=== PATIENT | male | born 1985 | race Two or more races ===

== ENCOUNTER 2016-06-27 12:30 | Inpatient (IN) | payer OTHER ==
[2016-06-27 14:12] VITALS: BMI 25.2
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
[2016-06-27] MEDS ORDERED: guaiFENesin/D-METHORPHAN HB 10 ML UNIT-DOSE CUPS PO PRN (16:36)
[2016-06-27] MEDS ORDERED: NICOTINE POLACRILEX 4 MG GUM BC PRN (16:36)
[2016-06-27] MEDS ORDERED: MENTHOL/PHENOL 1 EACH UD MM PRN (16:36)
[2016-06-27] MEDS ORDERED: chlordiazePOXIDE HCL 25 MG CAPSULE PO PRN (16:36)
[2016-06-27] MEDS ORDERED: LOPERAMIDE HCL 2 MG CAPSULE PO PRN (16:36)
[2016-06-27] MEDS ORDERED: IBUPROFEN 400 MG TABLET (FP) PO PRN (16:36)
[2016-06-27] MEDS ORDERED: P-EPHED 60MG/TRIPROLIDI 2.5MG TABLET PO PRN (16:36)
[2016-06-27] MEDS ORDERED: MAGNESIUM HYDROX 2400MG/30ML ORAL SUSPENSION 30 ML CUP PO PRN (16:36)
[2016-06-27] MEDS ORDERED: MAGNESIUM CITRATE 300 ML BOTTLE PO PRN (16:36)
[2016-06-27] MEDS ORDERED: hydrOXYzine PAMOATE 25 MG CAPSULE (FP) PO PRN (16:36)
[2016-06-27] MEDS ORDERED: diphenhydrAMINE HCL 50 MG CAPSULE PO PRN (16:36)
[2016-06-27] MEDS: chlordiazePOXIDE HCL 25 MG CAPSULE PO SCH ×2 (18:45→22:47)
[2016-06-27] MEDS: NICOTINE 21 MG/24 HOURS TOPICAL PATCH TD SCH (18:51)
[2016-06-27] MEDS: MAG HYDROX/AL HYDROX/SIMETH 30 ML UNIT-DOSE CUP PO PRN (20:27)
[2016-06-27] MEDS: ACETAMINOPHEN 325 MG TABLET (FP) PO PRN (21:29)
[2016-06-27] MEDS ORDERED: PANTOPRAZOLE 40 MG TABLET (FP) PO SCH (22:45)
[2016-06-27] MEDS: THIAMINE HCL 100 MG TABLET (FP) PO SCH (22:49)
[2016-06-27] MEDS: BACITRACIN 0.9 GM PACKET TP SCH (22:49)
[2016-06-27] MEDS: SUCRALFATE 1 GM/10 ML UNIT DOSE CUPS PO SCH (23:08)
[2016-06-27] MEDS: RANITIDINE HCL 150 MG TABLET (FP) PO SCH (23:10)
[2016-06-27] MEDS: PANTOPRAZOLE 40 MG TABLET (FP) PO SCH (23:11)
--- NOTE | 2016-06-27 23:12 | PN ---
[id number] from standing to lying on bed, pivot self to center of bed skin warm dry, lungs clear, S1S2 RRR, abdomen round symmetical, bowel sounds x 4 , soft, none tender encourage compliance with carafate protonix and zantac pharmacist informed will deliver medication to unit as soon as possible recommend inform provider if condition worsening continue monitoring closely
[2016-06-27 23:21] LABS: URINE APPEARANCE CLEAR; URINE BILIRUBIN NEGATIVE (NEGATIVE); URINE BLOOD NEGATIVE (NEGATIVE); URINE COLOR LTYELLOW; URINE GLUCOSE (UA) NEGATIVE (NEGATIVE); URINE KETONE TRACE (NEGATIVE); URINE LEUK ESTERASE NEGATIVE (NEGATIVE); URINE NITRITE NEGATIVE (NEGATIVE); URINE PROTEIN NEGATIVE (NEGATIVE); URINE UROBILINOGEN NEGATIVE E.U./dl (0.2-1.0)
[2016-06-28] MEDS: ACETAMINOPHEN 325 MG TABLET (FP) PO PRN (02:23)
[2016-06-28] MEDS: MAG HYDROX/AL HYDROX/SIMETH 30 ML UNIT-DOSE CUP PO PRN (04:46)
[2016-06-28] MEDS: chlordiazePOXIDE HCL 25 MG CAPSULE PO SCH ×4 (05:39→22:38)
[2016-06-28] MEDS ORDERED: RANITIDINE HCL 150 MG TABLET (FP) PO SCH (10:00)
[2016-06-28 10:01] LABS: MCH 26.7 pg (25.7-33.7); MCHC 31.8 g/dl (32.0-35.9); MEAN PLT VOLUME 8.3 fl (7.5-11.1); PLATELET COUNT 343 K/MM3 (134-434); RDW 15.8 % (11.9-15.9)
[2016-06-28] MEDS: RANITIDINE HCL 150 MG TABLET (FP) PO SCH ×2 (10:40→22:38)
[2016-06-28] MEDS: PRENATAL VITAMINS W/ FOLIC ACID TABLET (FP) PO SCH (10:40)
[2016-06-28] MEDS: PANTOPRAZOLE 40 MG TABLET (FP) PO SCH ×2 (10:40→22:38)
[2016-06-28] MEDS: SUCRALFATE 1 GM/10 ML UNIT DOSE CUPS PO SCH ×4 (10:40→22:38)
[2016-06-28 10:54] LABS: ALBUMIN 3.8 g/dl (3.4-5.0); ALK PHOS 92 U/L (45-117); ANION GAP 14 (8-16); BILIRUBIN,TOTAL 0.3 mg/dL (0.2-1.0); CALCIUM 8.7 mg/dL (8.5-10.1); CO2 22 mmol/L (21-32); CREATININE 0.5 mg/dL (0.7-1.3); GLUCOSE,RANDOM 89 mg/dL (74-106); SGOT/AST 34 U/L (15-37); SGPT/ALT 28 U/L (12-78); TOT PROT 7.6 g/dl (6.4-8.2)
[2016-06-28] MEDS: NICOTINE 21 MG/24 HOURS TOPICAL PATCH TD SCH (11:05)
[2016-06-28] MEDS: BACITRACIN 0.9 GM PACKET TP SCH ×2 (11:05→22:38)
--- NOTE | 2016-06-28 12:00 | CONSULT ---
[facility] Psychiatric Consult - Data Date of interview: 06/28/16 Admission source: [facility] Identifying data: Readmission to [facility] for this 30 y/o male seeking detox treatment for alcohol dependence.Patient is without children,domiciled, unemployed and supported on food stamps. Substance Abuse History: - Smoking Cessation. Smoking history: Current every day smoker. Have you smoked in the past 12 months: Yes. Aproximately how many cigarettes per day: 20. Cigars Per Day: 0. Hx Chewing Tobacco Use: No. Initiated information on smoking cessation: Yes. 'Breaking Loose' booklet given : 06/27/16. - Substance & Tx. History. Hx Alcohol Use: Yes (BEER/VODKA( SOMETIMES)). Hx Substance Use: No (DENIES). Substance Use Type: Alcohol. Hx Substance Use Treatment: Yes ([facility]). - Substances Abused. Alcohol. Route: Oral. Frequency: Daily. Amount used: 10-20 BEERS. Age of first use: 19. Date of Last Use: 06/27/16. Confirmed by patient. Medical History: Patient endorses good general health. Psychiatric History: Initially diagnosed with Schizophrenia,recently revised to Bipolar Disorder.History of five psychiatric hospitalizations.Maintained on seroquel 300 mg/hs + trazodone 150 mg/hs.Patient states that he is followed by a private psychiatrist.History of chronic non-adherence to [facility] care.Mr Joyce denies history of suicide attempts. Physical/Sexual Abuse/Trauma History: Patient denies. Additional Comment: Urine Drug Screen Results: BZO-Benzodiazepines.Noted. Mental Status Exam - Mental Status Exam Alert and Oriented to: Time, Place, Person Cognitive Function: Good Patient Appearance: Unkempt, Disheveled Mood: Withdrawn, Anxious Affect: Mood Congruent Patient Behavior: Fatigued, Appropriate, Cooperative Speech Pattern: Clear Voice Loudness: Normal Thought Process: Goal Oriented Thought Disorder: Not Present Hallucinations: Denies Suicidal Ideation: Denies Homicidal Ideation: Denies Insight/Judgement: Poor Sleep: Poorly, Difficulty falling asleep Appetite: Good Muscle strength/Tone: Normal Gait/Station: Normal Psychiatric Findings - Problem List ([place] 1, 2,3) (1) Alcohol dependence with uncomplicated withdrawal Current Visit: Yes Status: Acute (2) Nicotine dependence Current Visit: Yes Status: Acute Qualifiers: Nicotine product type: cigarettes Substance use status: uncomplicated Qualified Code(s): F17.210 - Nicotine dependence, cigarettes, uncomplicated (3) Substance induced mood disorder Current Visit: Yes Status: Acute (4) Schizophrenia Current Visit: Yes Status: Chronic Comment: History. (5) Insomnia Current Visit: Yes Status: Chronic - Initial Treatment Plan Initial Treatment Plan: Psychoeducation.Detoxification.Medications : seroquel 300 mg po hs + trazodone 100 mg po hs.Side effects/benefits discussed with patient.He agrees with this careplan.Observation.Medications verified through review of pharmacy claims.
--- NOTE | 2016-06-28 15:04 | PN ---
S CIWA - CIWA Score Nausea/Vomitin-No Nausea/No Vomiting Muscle Tremors: 4-Moderate,w/Arms Extend Anxiety: 4-Mod. Anxious/Guarded Agitation: 4-Moderately Restless Paroxysmal Sweats: 4-Forehead w/Sweat Beads Orientation: 0-Oriented Tacttile Disturbances: 0-None Auditory Disturbances: 0-None Visual Disturbances: 0-None Headache: 0-None Present CIWA-Ar Total Score: 16 BHS Progress Note (SOAP) Subjective: Anxiety,tremors,sweating,interrupted sleep,restless. Objective: 06/28/16 15:05 Vital Signs - 8 hr 06/28/16 06/28/16 10:48 13:32 Temperature 98.6 F 98.4 F Pulse Rate 104 H 85 Respiratory 20 18 Rate Blood Pressure 114/74 124/73 Laboratory Tests 06/27/16 06/28/16 06/28/16 22:00 06:00 06:00 WBC 12.0 H D RBC 3.93 L Hgb 10.5 L D Hct 33.0 L D MCV 84.0 MCHC 31.8 L RDW 15.8 Plt Count 343 D MPV 8.3 D Sodium 138 Potassium 3.6 Chloride 102 Carbon Dioxide 22 Anion Gap 14 BUN 4 L D Creatinine 0.5 L D Creat Clearance w eGFR > 60 Random Glucose 89 Calcium 8.7 Total Bilirubin 0.3 D AST 34 ALT 28 D Alkaline Phosphatase 92 D Total Protein 7.6 Albumin 3.8 Urine Color Ltyellow Urine Appearance Clear Urine pH 5.0 D Ur Specific [place] 1.010 Urine Protein Negative Urine Glucose (UA) Negative Urine Ketones Trace H Urine Blood Negative Urine Nitrite Negative Urine Bilirubin Negative Urine Urobilinogen Negative Ur Leukocyte Esterase Negative RPR Titer 06/28/16 06:00 WBC RBC Hgb Hct MCV MCHC RDW Plt Count MPV Sodium Potassium Chloride Carbon Dioxide Anion Gap BUN Creatinine Creat Clearance w eGFR Random Glucose Calcium Total Bilirubin AST ALT Alkaline Phosphatase Total Protein Albumin Urine Color Urine Appearance Urine pH Ur Specific [place] Urine Protein Urine Glucose (UA) Urine Ketones Urine Blood Urine Nitrite Urine Bilirubin Urine Urobilinogen Ur Leukocyte Esterase RPR Titer Nonreactive labs noted Assessment: 06/28/16 15:05 Withdrawal sx. Plan: Continue detox
--- NOTE | 2016-06-28 16:55 | EKG ---
Test Reason : Blood Pressure : / mmHG Vent. Rate : 102 BPM Atrial Rate : 102 BPM P-R Int : 118 ms QRS Dur : 078 ms QT Int : 368 ms P-R-T Axes : 067 069 066 degrees QTc Int : 479 ms SINUS TACHYCARDIA OTHERWISE NORMAL ECG NO PREVIOUS ECGS AVAILABLE Confirmed by BRIAN RAHMAN MD ([id number]) on 06/28/2016 4:55:10 PM Referred By: Confirmed By:BRIAN RAHMAN MD
[2016-06-28] MEDS: QUEtiapine FUMARATE 300 MG TABLET PO SCH (22:38)
[2016-06-28] MEDS: traZODone HCL 100 MG TABLET (FP) PO SCH (22:38)
[2016-06-28] MEDS: THIAMINE HCL 100 MG TABLET (FP) PO SCH (22:38)
[2016-06-29] MEDS: chlordiazePOXIDE HCL 25 MG CAPSULE PO SCH ×2 (06:36→11:42)
--- NOTE | 2016-06-29 06:36 | PN ---
[facility] Progress Note Note: RAPID RESPONSE CALLED FOR UNRESPONSIVE PT. UPON ARRIVAL CLIENT NOTED BEING SUPPORTED BY STAFF ON A CHAIR WAKING UP FROM A SYNCOPE EPISODE AROUSABLE, PALE, C/O OF SEVERE ABD PAIN. INCONTINENT EPISODE OF URINE Laboratory Tests 06/27/16 06/28/16 06/28/16 22:00 06:00 06:00 WBC 12.0 H D RBC 3.93 L Hgb 10.5 L D Hct 33.0 L D MCV 84.0 MCHC 31.8 L RDW 15.8 Plt Count 343 D MPV 8.3 D Sodium 138 Potassium 3.6 Chloride 102 Carbon Dioxide 22 Anion Gap 14 BUN 4 L D Creatinine 0.5 L D Creat Clearance w eGFR > 60 POC Glucometer Random Glucose 89 Calcium 8.7 Total Bilirubin 0.3 D AST 34 ALT 28 D Alkaline Phosphatase 92 D Total Protein 7.6 Albumin 3.8 Urine Color Ltyellow Urine Appearance Clear Urine pH 5.0 D Ur Specific [place] 1.010 Urine Protein Negative Urine Glucose (UA) Negative Urine Ketones Trace H Urine Blood Negative Urine Nitrite Negative Urine Bilirubin Negative Urine Urobilinogen Negative Ur Leukocyte Esterase Negative RPR Titer 06/28/16 06/29/16 06:00 06:11 WBC RBC Hgb Hct MCV MCHC RDW Plt Count MPV Sodium Potassium Chloride Carbon Dioxide Anion Gap BUN Creatinine Creat Clearance w eGFR POC Glucometer 123 Random Glucose Calcium Total Bilirubin AST ALT Alkaline Phosphatase Total Protein Albumin Urine Color Urine Appearance Urine pH Ur Specific [place] Urine Protein Urine Glucose (UA) Urine Ketones Urine Blood Urine Nitrite Urine Bilirubin Urine Urobilinogen Ur Leukocyte Esterase RPR Titer Nonreactive VS T 97, B/P 68/43 REPEAT 83/54 P- 104, R 20 O2 SAT 95 RA BGM 122 A- SYNCOPE, ETOH WITHDRAWAL, ABD PAIN P- 30 Y.O. MALE WITH PMHX OF ETOH RELATED WITHDRAWAL SEIZURES, ADMITTED FOR ALCOHOLISM DAY 05/15 WITH C/O SEVERE ABD PAIN NOTED W/SYNCOPE, HYPOTENSIVE EPISODE THIS MORNING. ON LIBRIUM TAPER LDM 25MG ON 06/28/16 10:30 PM TRANSFER TO [facility] FOR EVAL REPORT GIVEN TO FABIAN HANDLEY CALLED
[2016-06-29] MEDS: BACITRACIN 0.9 GM PACKET TP SCH ×2 (11:41→22:13)
[2016-06-29] MEDS: SUCRALFATE 1 GM/10 ML UNIT DOSE CUPS PO SCH ×4 (11:42→22:13)
[2016-06-29] MEDS: NICOTINE 21 MG/24 HOURS TOPICAL PATCH TD SCH (11:48)
[2016-06-29] MEDS: PRENATAL VITAMINS W/ FOLIC ACID TABLET (FP) PO SCH (11:48)
[2016-06-29] MEDS: RANITIDINE HCL 150 MG TABLET (FP) PO SCH ×2 (11:49→22:13)
[2016-06-29] MEDS: PANTOPRAZOLE 40 MG TABLET (FP) PO SCH ×2 (11:49→22:14)
--- NOTE | 2016-06-29 14:07 | PN ---
S CIWA - CIWA Score Nausea/Vomitin Muscle Tremors: 2 Anxiety: 3 Agitation: 2 Paroxysmal Sweats: 1-Minimal Palms Moist Orientation: 0-Oriented Tacttile Disturbances: 1-Very Mild Itch/Numbness Auditory Disturbances: 1-Very Mild Visual Disturbances: 1-Very Mild Sensitivity Headache: 2-Mild CIWA-Ar Total Score: 16 BHS Progress Note (SOAP) Subjective: alert,irritable,anxious,interrupted sleep,medically clear from [facility] er to return to detox Objective: 06/29/16 14:08 Vital Signs Temperature 97.4 F L 06/29/16 06:39 Pulse Rate 104 H 06/29/16 06:39 Respiratory Rate 16 06/29/16 06:39 Blood Pressure 89/62 06/29/16 06:39 O2 Sat by Pulse Oximetry (%) Assessment: 06/29/16 14:09 withdrawal symptom Plan: continue detox.zitromax 250 mgs po daily for 4 days stated in am
[2016-06-29] MEDS: chlordiazePOXIDE 5 MG CAPSULE PO SCH ×2 (17:08→22:14)
[2016-06-29] MEDS: traZODone HCL 100 MG TABLET (FP) PO SCH (22:13)
[2016-06-29] MEDS: THIAMINE HCL 100 MG TABLET (FP) PO SCH (22:14)
[2016-06-29] MEDS: QUEtiapine FUMARATE 300 MG TABLET PO SCH (22:14)
[2016-06-30] MEDS: chlordiazePOXIDE 5 MG CAPSULE PO SCH ×2 (05:31→10:15)
[2016-06-30] MEDS: AZITHROMYCIN 250 MG TABLET (FP) PO SCH (10:15)
[2016-06-30] MEDS: BACITRACIN 0.9 GM PACKET TP SCH ×2 (10:16→22:09)
[2016-06-30] MEDS: NICOTINE 21 MG/24 HOURS TOPICAL PATCH TD SCH (10:16)
[2016-06-30] MEDS: SUCRALFATE 1 GM/10 ML UNIT DOSE CUPS PO SCH ×4 (10:16→22:09)
[2016-06-30] MEDS: RANITIDINE HCL 150 MG TABLET (FP) PO SCH ×2 (10:16→22:10)
[2016-06-30] MEDS: PRENATAL VITAMINS W/ FOLIC ACID TABLET (FP) PO SCH (10:16)
[2016-06-30] MEDS: PANTOPRAZOLE 40 MG TABLET (FP) PO SCH ×2 (10:16→22:10)
--- NOTE | 2016-06-30 11:08 | PN ---
[facility] Progress Note (SOAP) Subjective: Sweating,interrupted sleep,restless. Objective: 06/30/16 11:07 Vital Signs - 8 hr 06/30/16 06/30/16 06/30/16 03: 06:26 09:39 Temperature 97.4 F L 96.5 F L Pulse Rate 89 85 Respiratory 16 16 19 Rate Blood Pressure 106/70 118/77 Laboratory Last Values WBC 12.0 K/mm3 (4.0-10.0) H D 06/28/16 06:00 RBC 3.93 M/mm3 (4.00-5.60) L 06/28/16 06:00 Hgb 10.5 GM/dL (11.7-16.9) L D 06/28/16 06:00 Hct 33.0 % (35.4-49) L D 06/28/16 06:00 MCV 84.0 fl (80-96) 06/28/16 06:00 MCHC 31.8 g/dl (32.0-35.9) L 06/28/16 06:00 RDW 15.8 % (11.9-15.9) 06/28/16 06:00 Plt Count 343 K/MM3 (134-434) D 06/28/16 06:00 MPV 8.3 fl (7.5-11.1) D 06/28/16 06:00 Sodium 138 mmol/L (136-145) 06/28/16 06:00 Potassium 3.6 mmol/L (3.5-5.1) 06/28/16 06:00 Chloride 102 mmol/L (98-107) 06/28/16 06:00 Carbon Dioxide 22 mmol/L (21-32) 06/28/16 06:00 Anion Gap 14 (8-16) 06/28/16 06:00 BUN 4 mg/dL (7-18) L D 06/28/16 06:00 Creatinine 0.5 mg/dL (0.7-1.3) L D 06/28/16 06:00 Creat Clearance w eGFR > 60 (>60) 06/28/16 06:00 POC Glucometer 123 UNITS (()) 06/29/16 06:11 Random Glucose 89 mg/dL (74-106) 06/28/16 06:00 Calcium 8.7 mg/dL (8.5-10.1) 06/28/16 06:00 Total Bilirubin 0.3 mg/dL (0.2-1.0) D 06/28/16 06:00 AST 34 U/L (15-37) 06/28/16 06:00 ALT 28 U/L (12-78) D 06/28/16 06:00 Alkaline Phosphatase 92 U/L (45-117) D 06/28/16 06:00 Total Protein 7.6 g/dl (6.4-8.2) 06/28/16 06:00 Albumin 3.8 g/dl (3.4-5.0) 06/28/16 06:00 Urine Color Ltyellow 06/27/16 22:00 Urine Appearance Clear 06/27/16 22:00 Urine pH 5.0 (5.0-8.0) D 06/27/16 22:00 Ur Specific [place] 1.010 (1.001-1.035) 06/27/16 22:00 Urine Protein Negative (NEGATIVE) 06/27/16 22:00 Urine Glucose (UA) Negative (NEGATIVE) 06/27/16 22:00 Urine Ketones Trace (NEGATIVE) H 06/27/16 22:00 Urine Blood Negative (NEGATIVE) 06/27/16 22:00 Urine Nitrite Negative (NEGATIVE) 06/27/16 22:00 Urine Bilirubin Negative (NEGATIVE) 06/27/16 22:00 Urine Urobilinogen Negative E.U./dl (0.2-1.0) 06/27/16 22:00 Ur Leukocyte Esterase Negative (NEGATIVE) 06/27/16 22:00 RPR Titer Nonreactive (NONREACTIVE) 06/28/16 06:00 labs noted Assessment: 06/30/16 11:07 Withdrawal sx. Plan: Continue detox
[2016-06-30] MEDS: chlordiazePOXIDE HCL 10 MG CAPSULE PO SCH ×2 (17:21→22:09)
[2016-06-30] MEDS: THIAMINE HCL 100 MG TABLET (FP) PO SCH (22:09)
[2016-06-30] MEDS: traZODone HCL 100 MG TABLET (FP) PO SCH (22:09)
[2016-06-30] MEDS: QUEtiapine FUMARATE 300 MG TABLET PO SCH (22:10)
[2016-07-01] MEDS: chlordiazePOXIDE HCL 10 MG CAPSULE PO SCH ×2 (05:11→10:07)
[2016-07-01] MEDS: SUCRALFATE 1 GM/10 ML UNIT DOSE CUPS PO SCH (10:07)
[2016-07-01] MEDS: NICOTINE 21 MG/24 HOURS TOPICAL PATCH TD SCH (10:07)
[2016-07-01] MEDS: RANITIDINE HCL 150 MG TABLET (FP) PO SCH (10:07)
[2016-07-01] MEDS: PRENATAL VITAMINS W/ FOLIC ACID TABLET (FP) PO SCH (10:07)
[2016-07-01] MEDS: BACITRACIN 0.9 GM PACKET TP SCH (10:07)
[2016-07-01] MEDS: PANTOPRAZOLE 40 MG TABLET (FP) PO SCH (10:07)
[2016-07-01] MEDS: AZITHROMYCIN 250 MG TABLET (FP) PO SCH (10:07)
[2016-07-01 10:41] VITALS: BP 119/84; PULSE 93; TEMP 96.9
--- NOTE | 2016-07-01 11:58 | DS ---
[facility] Detox Discharge Summary Admission Date: 06/27/16 Discharge Date: 07/01/16 - History Present History: Alcohol Dependence Additional Comments: ADVISED PATIENT TO FOLLOW-UP WITH [facility] / REHAB MEDICAL PROVIDER AFTER DISCHARGE FROM DETOX FOR GENERAL MEDICAL ASSESSMENT AND FOR ANY ABNORMAL ADMISSION LAB VALUES. Pertinent Past History: Seizures (Alcohol-Related), Depression. - Physical Exam Results Vital Signs: Vital Signs Temperature 96.9 F L 07/01/16 10:38 Pulse Rate 93 H 07/01/16 10:38 Respiratory Rate 18 07/01/16 10:38 Blood Pressure 119/84 07/01/16 10:38 O2 Sat by Pulse Oximetry (%) Pertinent Admission Physical Exam Findings: WITHDRAWAL SYMPTOMS. Laboratory Last Values WBC 12.0 K/mm3 (4.0-10.0) H D 06/28/16 06:00 RBC 3.93 M/mm3 (4.00-5.60) L 06/28/16 06:00 Hgb 10.5 GM/dL (11.7-16.9) L D 06/28/16 06:00 Hct 33.0 % (35.4-49) L D 06/28/16 06:00 MCV 84.0 fl (80-96) 06/28/16 06:00 MCHC 31.8 g/dl (32.0-35.9) L 06/28/16 06:00 RDW 15.8 % (11.9-15.9) 06/28/16 06:00 Plt Count 343 K/MM3 (134-434) D 06/28/16 06:00 MPV 8.3 fl (7.5-11.1) D 06/28/16 06:00 Sodium 138 mmol/L (136-145) 06/28/16 06:00 Potassium 3.6 mmol/L (3.5-5.1) 06/28/16 06:00 Chloride 102 mmol/L (98-107) 06/28/16 06:00 Carbon Dioxide 22 mmol/L (21-32) 06/28/16 06:00 Anion Gap 14 (8-16) 06/28/16 06:00 BUN 4 mg/dL (7-18) L D 06/28/16 06:00 Creatinine 0.5 mg/dL (0.7-1.3) L D 06/28/16 06:00 Creat Clearance w eGFR > 60 (>60) 06/28/16 06:00 POC Glucometer 123 UNITS (()) 06/29/16 06:11 Random Glucose 89 mg/dL (74-106) 06/28/16 06:00 Calcium 8.7 mg/dL (8.5-10.1) 06/28/16 06:00 Total Bilirubin 0.3 mg/dL (0.2-1.0) D 06/28/16 06:00 AST 34 U/L (15-37) 06/28/16 06:00 ALT 28 U/L (12-78) D 06/28/16 06:00 Alkaline Phosphatase 92 U/L (45-117) D 06/28/16 06:00 Total Protein 7.6 g/dl (6.4-8.2) 06/28/16 06:00 Albumin 3.8 g/dl (3.4-5.0) 06/28/16 06:00 Urine Color Ltyellow 06/27/16 22:00 Urine Appearance Clear 06/27/16 22:00 Urine pH 5.0 (5.0-8.0) D 06/27/16 22:00 Ur Specific [place] 1.010 (1.001-1.035) 06/27/16 22:00 Urine Protein Negative (NEGATIVE) 06/27/16 22:00 Urine Glucose (UA) Negative (NEGATIVE) 06/27/16 22:00 Urine Ketones Trace (NEGATIVE) H 06/27/16 22:00 Urine Blood Negative (NEGATIVE) 06/27/16 22:00 Urine Nitrite Negative (NEGATIVE) 06/27/16 22:00 Urine Bilirubin Negative (NEGATIVE) 06/27/16 22:00 Urine Urobilinogen Negative E.U./dl (0.2-1.0) 06/27/16 22:00 Ur Leukocyte Esterase Negative (NEGATIVE) 06/27/16 22:00 RPR Titer Nonreactive (NONREACTIVE) 06/28/16 06:00 LABS NOTED. - Treatment Hospital Course: Detox Protocol Followed, Detoxed Safely, Responded well, Discharged Condition Good, Rehab Referral Accepted Patient has Accepted a Rehab Referral to: YES - [facility]. - Medication Discharge Medications: Ambulatory Orders Quetiapine Fumarate [Seroquel -] 300 mg PO HS 06/27/16 Trazodone HCl [Desyrel -] 150 mg PO HS 06/27/16 Quetiapine Fumarate [Seroquel -] 300 mg PO HS #20 tab 07/01/16 - Diagnosis (1) Alcohol dependence with uncomplicated withdrawal Status: Acute (2) Nicotine dependence Status: Chronic Qualifiers: Nicotine product type: cigarettes Substance use status: uncomplicated Qualified Code(s): F17.210 - Nicotine dependence, cigarettes, uncomplicated (3) Alcohol withdrawal seizure Status: Suspected Qualifiers: Complication of substance-induced condition: uncomplicated Qualified Code(s): F10.230 - Alcohol dependence with withdrawal, uncomplicated - AMA Did Patient Leave Against Medical Advice: No
--- NOTE | 2016-07-04 12:43 | EKG ---
Test Reason : Blood Pressure : / mmHG Vent. Rate : 107 BPM Atrial Rate : 107 BPM P-R Int : 126 ms QRS Dur : 076 ms QT Int : 352 ms P-R-T Axes : 068 080 056 degrees QTc Int : 469 ms SINUS TACHYCARDIA OTHERWISE NORMAL ECG WHEN COMPARED WITH ECG OF 27-JUN-2016 17:50, NO SIGNIFICANT CHANGE WAS FOUND Confirmed by BRIAN RAHMAN MD ([id number]) on 07/04/2016 12:43:01 PM Referred By: Confirmed By:BRIAN RAHMAN MD
== END 2016-07-01 11:47 | disposition home or self-care (01) | DRG 775 ==
LOC: YASAS 12:30 → Y3N 15:53
PROVIDERS: ADMIT Internal Medicine; ATTEND Internal Medicine
PROC: HZ2ZZZZ Detoxification Services for Substance Abuse Treatment (ICD-10-PCS; principal; 2016-07-01)
DX: F10.230 Alcohol dependence with withdrawal, uncomplicated (principal); F17.210 Nicotine dependence, cigarettes, uncomplicated; F19.24 Other psychoactive substance dependence with psychoactive substance-induced mood disorder; F20.9 Schizophrenia, unspecified; G47.00 Insomnia, unspecified; G40.509 Epileptic seizures related to external causes, not intractable, without status epilepticus
CPT/HCPCS: 36415; 80053; 81003; 85027; 86593; 93005; 93010

== ENCOUNTER 2016-06-29 06:43 | Emergency (ER) | payer OTHER ==
[2016-06-29 06:56] VITALS: BMI 28.3
[2016-06-29] MEDS ORDERED: SODIUM CHLORIDE 1,000 ML IV ONE (07:11)
[2016-06-29] MEDS ORDERED: diazePAM CARPU-JECT 10 MG/2 ML DISP.SYRIN IVPUSH ONE (07:17)
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
[2016-06-29] MEDS ORDERED: diazePAM CARPU-JECT 10 MG/2 ML DISP.SYRIN ONE (07:53)
[2016-06-29 08:15] LABS: BASOPHIL 0.5 % (0-2.0); MCH 26.5 pg (25.7-33.7); MCHC 31.8 g/dl (32.0-35.9); MEAN CELL VOLUME 83.4 fl (80-96); NEUTROPHILS 65.6 % (42.8-82.8); PLATELET COUNT 228 K/MM3 (134-434); RDW 15.6 % (11.9-15.9); WHITE BLOOD COUNT 6.8 K/mm3 (4.0-10.0)
[2016-06-29] MEDS ORDERED: morphine CARPU-JECT 4 MG/1 ML DISP.SYRIN IVPUSH ONE (08:31)
[2016-06-29] MEDS ORDERED: morphine CARPU-JECT 4 MG/1 ML DISP.SYRIN ONE (08:34)
[2016-06-29 08:39] LABS: INR 1.15 (0.82-1.09); PROTHROMBIN TIME (PATIENT) 12.7 SEC (9.98-11.88)
[2016-06-29 09:39] LABS: ALBUMIN 3.7 g/dl (3.4-5.0); ALK PHOS 86 U/L (45-117); ANION GAP 11 (8-16); BILIRUBIN,TOTAL 0.9 mg/dL (0.2-1.0); CALCIUM 9.2 mg/dL (8.5-10.1); CO2 26 mmol/L (21-32); CREATININE 0.6 mg/dL (0.7-1.3); GLUCOSE,RANDOM 85 mg/dL (74-106); SGPT/ALT 164 U/L (12-78); TOT PROT 7.6 g/dl (6.4-8.2); TROPONIN I < 0.02 ng/ml (0.00-0.05)
[2016-06-29 09:40] LABS: SGOT/AST 482 U/L (15-37)
[2016-06-29] MEDS ORDERED: RANITIDINE HCL 150 MG TABLET (FP) PO ONE (10:09)
[2016-06-29] MEDS ORDERED: RANITIDINE HCL 150 MG TABLET (FP) ONE (10:17)
[2016-06-29] MEDS ORDERED: AZITHROMYCIN 250 MG TABLET (FP) PO ONE (11:00)
[2016-06-29] MEDS ORDERED: AZITHROMYCIN 250 MG TABLET (FP) ONE (11:25)
[2016-06-29 13:02] VITALS: BP 110/65; PULSE 85; TEMP 98.5
== END 2016-06-29 13:07 | disposition other institution (70) ==
LOC: JER 06:43
PROC: 3E0 Administration, Physiological Systems and Anatomical Regions, Introduction (ICD-10-PCS; principal; 2016-06-29)
PROC: 3E033NZ Introduction of Analgesics, Hypnotics, Sedatives into Peripheral Vein, Percutaneous Approach (ICD-10-PCS; 2016-06-29)
PROC: 3E033NZ Introduction of Analgesics, Hypnotics, Sedatives into Peripheral Vein, Percutaneous Approach (ICD-10-PCS; 2016-06-29)
DX: F10.29 Alcohol dependence with unspecified alcohol-induced disorder (principal); I10 Essential (primary) hypertension; G43.909 Migraine, unspecified, not intractable, without status migrainosus; F32.9 Major depressive disorder, single episode, unspecified; F20.9 Schizophrenia, unspecified
CPT/HCPCS: 36415; 70450-TC; 71010-TC; 80053; 82550; 83690; 84484; 85025; 85610; 99285-25

== ENCOUNTER 2016-12-23 18:43 | Emergency (ER) | payer OTHER ==
[2016-12-23] MEDS ORDERED: NALOXONE HCL 0.4 MG/ML VIAL ONE (18:56)
[2016-12-23] MEDS ORDERED: ONDANSETRON 4 MG/2 ML VIAL ONE (18:57)
[2016-12-23 18:59] VITALS: TEMP 98; BMI 21.3
[2016-12-23] MEDS ORDERED: SODIUM CHLORIDE 1,000 ML IV STA (19:04)
[2016-12-23] MEDS ORDERED: ONDANSETRON 4 MG/2 ML VIAL IVPUSH ONE (19:04)
--- NOTE | 2016-12-23 19:04 | PDOC ---
History of Present Illness - General Chief Complaint: Overdose Stated Complaint: Alcohol intoxication Time Seen by Provider: 12/23/16 19:04 History Source: EMS Exam Limitations: Intoxication - History of Present Illness Initial Comments: 31 yo M sent by [facility] for intoxication, altered mental status. He reportedly was requesting detox, but was altered, given nasal narcan by [facility]. He vomited after the narcan, was sent to ED for evaluation. Patient is intoxicated on exam, unable to provide any history. Past History - Past Medical History Allergies/Adverse Reactions: Allergies Allergy/AdvReac Type Severity Reaction Status Date / Time No Known Allergies Allergy Verified 12/23/16 18:53 Home Medications: Ambulatory Orders Unobtainable [Unobtainable] 12/23/16 Anemia: No Asthma: No Cancer: No Cardiac Disorders: No CVA: No COPD: No CHF: No Dementia: No Diabetes: No GI Disorders: No Disorders: No HTN: No Hypercholesterolemia: No Kidney Stones: No Liver Disease: No Psychiatric Problems: Yes Suicide Attempt (Hx): No Seizures: Yes (ETOH SEIZURES LAST) Thyroid Disease: No - Surgical History Abdominal Surgery: No Appendectomy: No Cardiac Surgery: No Cholecystectomy: No Lung Surgery: No Neurologic Surgery: No Orthopedic Surgery: No - Reproductive History Testicular Surgery: No - Psycho/Social/Smoking Cessation Hx Anxiety: No Suicidal Ideation: No Smoking History: Unknown if ever smoked Have you smoked in the past 12 months: Yes Number of Cigarettes Smoked Daily: 20 Cigars Per Day: 0 Information on smoking cessation initiated: No 'Breaking Loose' booklet given: 06/27/16 Hx Alcohol Use: Yes Drug/Substance Use Hx: Yes Substance Use Type: Alcohol, Cocaine, Heroin Hx Substance Use Treatment: Yes ([facility]) Review of Systems - Review of Systems Able to Perform ROS?: No (intoxicated) *Physical Exam - Vital Signs Last Vital Signs Temp Pulse Resp BP Pulse Ox 98 F 94 H 16 128/86 99 12/23/16 18:53 12/23/16 18:53 12/23/16 18:53 12/23/16 18:53 12/23/16 18:53 - Physical Exam Comments: GENERAL: Awake, lethargic, follows commands. HEAD: No signs of trauma EYES: PERRLA, EOMI, sclera anicteric, conjunctiva clear ENT: Auricles normal inspection, hearing grossly normal, nares patent, oropharynx clear without exudates. Moist mucosa. +Gag. NECK: Normal ROM, supple, no lymphadenopathy, JVD, or masses LUNGS: Breath sounds equal, clear to auscultation bilaterally. No wheezes, and no crackles HEART: Regular rate and rhythm, normal S1 and S2, no murmurs, rubs or gallops ABDOMEN: Soft, nontender, normoactive bowel sounds. No guarding, no rebound. No masses EXTREMITIES: Normal range of motion, no edema. No clubbing or cyanosis. No cords, erythema, or tenderness NEUROLOGICAL: Limited by poor cooperation. SKIN: Warm, Dry, normal turgor, no rashes or lesions noted. ED Treatment Course - LABORATORY CBC & Chemistry Diagram: 12/23/16 18:45 12/23/16 22:02 Medical Decision Making - Medical Decision Making 12/23/16 20:57 Patient resting comfortably. Maintaining airway. Will continue to monitor. 12/25/16 02:02 Patient continues to rest comfortably, maintaining airway. Endorsed to Dr. Cason, monitor to clinical sobriety. *DC/Admit/Observation/Transfer Diagnosis at time of Disposition: Overuse of medication - Discharge Dispostion Disposition: I.P. ALCOHOL/SUBS ABUSE REHAB - Patient Instructions Additional Instructions: Go back to [facility] to finish your program. Return to the emergency department immediately with ANY new, persistent or worsening symptoms. Continue any medications as previously prescribed by your physician. You should follow up with your primary doctor as soon as possible regarding today's emergency department visit. . Please make sure your doctor reviews the results of your emergency evaluation. Thank you for coming to the Emergency Department today for your care. It was a pleasure to see you today. Please note that your evaluation is INCOMPLETE until you follow-up with your doctor.
[2016-12-23 19:35] LABS: BASOPHIL 1.4 % (0-2.0); EOSINOPHIL 7.1 % (0-4.5); MCH 28.2 pg (25.7-33.7); MCHC 32.5 g/dl (32.0-35.9); MEAN CELL VOLUME 86.7 fl (80-96); MEAN PLT VOLUME 8.1 fl (7.5-11.1); PLATELET COUNT 294 K/MM3 (134-434); RDW 15.6 % (11.9-15.9); WHITE BLOOD COUNT 6.3 K/mm3 (4.0-10.0)
[2016-12-23 22:30] LABS: URINE MARIJUANA THC NEGATIVE ng/ml (CUTOFF=50)
[2016-12-23 22:48] LABS: ALBUMIN 3.6 g/dl (3.4-5.0); ANION GAP 8 (8-16); BILIRUBIN,TOTAL 0.2 mg/dL (0.2-1.0); CALCIUM 8.9 mg/dL (8.5-10.1); CO2 27 mmol/L (21-32); CREATININE 0.5 mg/dL (0.7-1.3); GLUCOSE,RANDOM 101 mg/dL (74-106); SGOT/AST 20 U/L (15-37); SGPT/ALT 28 U/L (12-78); TOT PROT 7.2 g/dl (6.4-8.2)
[2016-12-23] MEDS ORDERED: SODIUM CHLORIDE 2,000 ML IV STA (22:48)
[2016-12-23 22:49] LABS: ALK PHOS 59 U/L (45-117)
[2016-12-24 00:18] VITALS: BP 91/80; PULSE 101
--- NOTE | 2016-12-24 02:19 | PDOC ---
*Physical Exam - Vital Signs Last Vital Signs Temp Pulse Resp BP Pulse Ox 98 F 101 H 17 91/80 99 12/23/16 18:53 12/24/16 00:17 12/24/16 00:17 12/24/16 00:17 12/24/16 00:17 ED Treatment Course - LABORATORY CBC & Chemistry Diagram: 12/23/16 18:45 12/23/16 22:02 - ADDITIONAL ORDERS Additional order review: Laboratory Results 12/23/16 12/23/16 12/23/16 22:02 22:02 18:45 Sodium 143 Potassium 4.1 Chloride 108 H Carbon Dioxide 27 Anion Gap 8 BUN 6 L Creatinine 0.5 L Creat Clearance w eGFR > 60 Random Glucose 101 Calcium 8.9 Total Bilirubin 0.2 D AST 20 D ALT 28 D Alkaline Phosphatase 59 D Total Protein 7.2 Albumin 3.6 Opiates Screen Negative Methadone Screen Negative Barbiturate Screen Negative Phencyclidine Screen Negative Ur Amphetamines Screen Negative MDMA (Ecstasy) Screen Negative Benzodiazepines Screen Positive Cocaine Screen Negative U Marijuana (THC) Screen Negative Alcohol, Quantitative 245.0 H* 12/23/16 18:45 Sodium Cancelled Potassium Cancelled Chloride Cancelled Carbon Dioxide Cancelled Anion Gap Cancelled BUN Cancelled Creatinine Cancelled Creat Clearance w eGFR Cancelled Random Glucose Cancelled Calcium Cancelled Total Bilirubin Cancelled AST Cancelled ALT Cancelled Alkaline Phosphatase Cancelled Total Protein Cancelled Albumin Cancelled Opiates Screen Methadone Screen Barbiturate Screen Phencyclidine Screen Ur Amphetamines Screen MDMA (Ecstasy) Screen Benzodiazepines Screen Cocaine Screen U Marijuana (THC) Screen Alcohol, Quantitative 12/23/16 18:45 RBC 4.17 MCV 86.7 MCHC 32.5 RDW 15.6 MPV 8.1 Neutrophils % 50.0 D Lymphocytes % 35.6 D Monocytes % 5.9 Eosinophils % 7.1 H Basophils % 1.4 - Medications Given in the ED: ED Medications Discontinued Medications Generic Name Dose Route Start Last Admin Trade Name Freq PRN Reason Stop Dose Admin Sodium Chloride 1,000 mls @ 1,000 mls/hr 12/23/16 19:04 12/23/16 19:31 Normal Saline - IV 12/23/16 20:03 1,000 mls/hr ASDIR STA Administration Sodium Chloride 2,000 mls @ 1,000 mls/hr 12/23/16 22:48 12/24/16 00:10 Normal Saline - IV 12/24/16 00:47 1,000 mls/hr ASDIR STA Administration Ondansetron HCl 4 mg 12/23/16 19:04 12/23/16 19:31 Zofran Injection IVPUSH 12/23/16 19:05 4 mg ONCE ONE Administration Progress Note - Progress Note Progress Note: This patient was transferred to [place] from Dr. Cooper at 02:00 patient oral last detox center for evaluation of dictation. Patient was without complaints. Patient is sleeping comfortably . Once he is awake he will be sent to his rehab center. 05:00 Patient awake and alert. Complaining of some shaking. However she went patient is unaware that he is being observed there is no shaking. Transferred back to his detox/rehab center. *DC/Admit/Observation/Transfer Diagnosis at time of Disposition: Overuse of medication - Discharge Dispostion Disposition: TRANSFER ACUTE CARE/OTHER HOSP - Patient Instructions Additional Instructions: Go back to [facility] to finish your program. Return to the emergency department immediately with ANY new, persistent or worsening symptoms. Continue any medications as previously prescribed by your physician. You should follow up with your primary doctor as soon as possible regarding today's emergency department visit. . Please make sure your doctor reviews the results of your emergency evaluation. Thank you for coming to the Emergency Department today for your care. It was a pleasure to see you today. Please note that your evaluation is INCOMPLETE until you follow-up with your doctor.
== END 2016-12-24 05:27 | disposition other institution (70) ==
LOC: JER 18:43
PROC: 3E0337Z Introduction of Electrolytic and Water Balance Substance into Peripheral Vein, Percutaneous Approach (ICD-10-PCS; principal; 2016-12-23)
PROC: 3E033GC Introduction of Other Therapeutic Substance into Peripheral Vein, Percutaneous Approach (ICD-10-PCS; 2016-12-23)
DX: F10.220 Alcohol dependence with intoxication, uncomplicated (principal); Y90.8 Blood alcohol level of 240 mg/100 ml or more
CPT/HCPCS: 36415; 80053; 80307; 85025; 96361; 96374; 99284-25

== ENCOUNTER 2018-07-27 13:38 | Inpatient (IN) | payer OTHER ==
[2018-07-27 16:40] VITALS: BMI 22.8
--- NOTE | 2018-07-27 18:00 | HP ---
CIWA Score - Admission Criteria [facility] Guidelines: Admission for Medically Managed Detox: Requires at least one of the followin. CIWA greater than 12 2. Seizures within the past 24 hours 3. Delirium tremens within the past 24 hours 4. Hallucinations within the past 24 hours 5. Acute intervention needed for co occurring medical disorder 6. Acute intervention needed for co occurring psychiatric disorder 7. Severe withdrawal that cannot be handled at a lower level of care (continued vomiting, continued diarrhea, abnormal vital signs) requiring intravenous medication and/or fluids 8. Admission ROS S - HPI Chief Complaint: Seeking rehab services Allergies/Adverse Reactions: Allergies Allergy/AdvReac Type Severity Reaction Status Date / Time No Known Allergies Allergy Verified 07/27/18 16:35 History of Present Illness: 32 y.o. man with an extensive history of alcohol dependence is here seeking rehab services. He reports the was admitted for the last 3 weeks at [facility] for the treatment depression and anxiety; he states he was discharged today . Does not have a significant period of sobriety. Exam Limitations: No Limitations - Ebola screening Have you traveled outside of the country in the last 21 days: No (N) Have you had contact with anyone from an Ebola affected area: No Do you have a fever: No - Review of Systems Constitutional: Loss of Appetite, Unintentional Wgt. Loss EENT: reports: No Symptoms Reported Respiratory: reports: No Symptoms reported Cardiac: reports: No Symptoms Reported GI: reports: No Symptoms Reported : reports: Other (Hestitancy) Musculoskeletal: reports: No Symptoms Reported Integumentary: reports: No Symptoms Reported Neuro: reports: No Symptoms reported Endocrine: reports: No Symptoms Reported Hematology: reports: No Symptoms Reported Psychiatric: reports: Anxious, Depressed Other Systems: Reviewed and Negative Patient History - Patient Medical History Hx Anemia: No Hx Asthma: No Hx Chronic Obstructive Pulmonary Disease (COPD): No Hx Cancer: No Hx Cardiac Disorders: No Hx Congestive Heart Failure: No Hx Hypertension: No Hx Hypercholesterolemia: No Hx Pacemaker: No HX Cerebrovascular Accident: No Hx Seizures: Yes (ETOH RELATED SEIZURES 6 YEARS AGO) Hx Dementia: No Hx Diabetes: No Hx Gastrointestinal Disorders: No Hx Liver Disease: No Hx Genitourinary Disorders: No Hx Sexually Transmitted Disorders: No Hx Renal Disease (ESRD): No Hx Thyroid Disease: No Hx Human Immunodeficiency Virus (HIV): No Hx Hepatitis C: No Hx Depression: Yes Hx Suicide Attempt: No Hx Bipolar Disorder: No Hx Schizophrenia: No Other Medical History: BIPOLAR; H/O AUDITORY HALLUCINATIONS - Patient Surgical History Past Surgical History: No Hx Neurologic Surgery: No Hx Cataract Extraction: No Hx Cardiac Surgery: No Hx Lung Surgery: No Hx Breast Surgery: No Hx Breast Biopsy: No Hx Abdominal Surgery: No Hx Appendectomy: No Hx Cholecystectomy: No Hx Genitourinary Surgery: No Hx Section: No Hx Orthopedic Surgery: No Hx Hysterectomy: No Anesthesia Reaction: (N/A) - PPD History Previous Implant?: Yes Documented Results: Negative w/o proof Date: 06/29/16 (Reports he had neg. PPD ) PPD to be Administered?: Yes - Reproductive History Patient is a Female of Child Bearing Age (11 -55 yrs old): No - Smoking Cessation Smoking history: Current every day smoker Have you smoked in the past 12 months: Yes Aproximately how many cigarettes per day: 20 Cigars Per Day: 0 Hx Chewing Tobacco Use: No Initiated information on smoking cessation: Yes 'Breaking Loose' booklet given: 07/27/18 - Substance & Tx. History Hx Alcohol Use: Yes Hx Substance Use: No Substance Use Type: Alcohol Hx Substance Use Treatment: Yes (Reports rehab 6 months ago but does not recall location of the rehab ) - Substances abused Alcohol Substance route: Oral Frequency: Daily Amount used: 10 BEERS Age of first use: 16 Date of last use: 07/27/18 Family Disease History - Family Disease History Family Disease History: Other: Grandparent (--NATURAL CAUSES.), Father ( OF NATURAL COAUSE) Admission Physical Exam S - Vital Signs Vital Signs: Vital Signs - 24 hr 07/27/18 16:33 Temperature 96.9 F L Pulse Rate 101 H Respiratory 18 Rate Blood Pressure 104/74 - Physical General Appearance: Yes: Appropriately Dressed, Anxious HEENTM: Yes: Hearing grossly Normal, Normocephalic, Normal Voice Respiratory: Yes: Lungs Clear, Normal Breath Sounds, No Respiratory Distress, No Accessory Muscle Use Neck: Yes: No masses,lesions,Nodules, Trachea in good position Breast: Yes: Breast Exam Deferred Cardiology: Yes: Regular Rhythm, Regular Rate Abdominal: Yes: Normal Bowel Sounds, Non Tender, Soft Genitourinary: Yes: Other (No complaints reported) Back: Yes: Normal Inspection Musculoskeletal: Yes: full range of Motion, Gait Steady Extremities: Yes: Normal Inspection, Normal Range of Motion, Non-Tender Neurological: Yes: Alert, Normal Mood/Affect, Normal Response Integumentary: Yes: Normal Color, Dry, Warm Lymphatic: Yes: Within Normal Limits - Diagnostic (1) History of seizures Current Visit: Yes Status: Chronic (2) Alcohol dependence with uncomplicated withdrawal Current Visit: Yes Status: Chronic (3) Nicotine dependence Current Visit: Yes Status: Chronic Qualifiers: Nicotine product type: cigarettes Substance use status: uncomplicated Qualified Code(s): F17.210 - Nicotine dependence, cigarettes, uncomplicated Cleared for Admission [facility] - Detox or Rehab [facility] Level of Care: Observation Bed Detox Regimen/Protocol: Not Applicable Claeared for Rehab Admission: Yes Breathalyzer - Breathalyzer Breathalyzer: 0.116 Urine Drug Screen - Test Device Lot number: [id number] Expiration date: 03/09/20 - Control Is test valid?: Yes - Results Drug screen NEGATIVE: Yes Inpatient Rehab Admission - Rehab Decision to Admit Inpatient rehab admission?: Yes - Initial Determination Are CD services needed?: Yes Free of communicable disease: Yes Not in need of hospitalization: Yes - Rehab Admission Criteria Previous failed treatment: Yes Poor recovery environment: Yes Comorbidities: Yes Lacks judgement: Yes Patient is meeting Inpatient Rehab admission criteria:: Yes
[2018-07-27] MEDS ORDERED: guaiFENesin 200 MG/10 ML 10 ML UNIT-DOSE CUPS PO PRN (18:30)
[2018-07-27] MEDS ORDERED: MENTHOL/PHENOL 1 EACH UD MM PRN (18:30)
[2018-07-27] MEDS ORDERED: MAG HYDROX/AL HYDROX/SIMETH 30 ML UNIT-DOSE CUP PO PRN (18:30)
[2018-07-27] MEDS ORDERED: NICOTINE POLACRILEX 4 MG GUM BC PRN (18:30)
[2018-07-27] MEDS ORDERED: P-EPHED 60MG/TRIPROLIDI 2.5MG TABLET PO PRN (18:30)
[2018-07-27] MEDS ORDERED: IBUPROFEN 400 MG TABLET (FP) PO PRN (18:30)
[2018-07-27] MEDS ORDERED: MAGNESIUM HYDROX 2400MG/30ML ORAL SUSPENSION 30 ML CUP PO PRN (18:30)
[2018-07-27] MEDS ORDERED: MAGNESIUM CITRATE 300 ML BOTTLE PO PRN (18:30)
[2018-07-27] MEDS ORDERED: LOPERAMIDE HCL 2 MG CAPSULE PO PRN (18:30)
[2018-07-27] MEDS ORDERED: ACETAMINOPHEN 325 MG TABLET (FP) PO PRN (18:30)
[2018-07-27] MEDS ORDERED: ARTIFICIAL TEARS (POLYVINYL ALCOHOL) OPTH DROPS OU PRN (19:02)
[2018-07-27] MEDS ORDERED: HALOPERIDOL 5 MG TABLET (FP) PO ONE (19:30)
[2018-07-27] MEDS ORDERED: traZODone HCL 150 MG TABLET PO ONE (19:30)
[2018-07-27] MEDS ORDERED: QUEtiapine FUMARATE 200 MG TABLET PO ONE (19:30)
[2018-07-27] MEDS: THIAMINE HCL 100 MG TABLET (FP) PO SCH (21:11)
[2018-07-27] MEDS ORDERED: traZODone HCL 50 MG TABLET (FP) PO ONE (21:15)
[2018-07-27] MEDS ORDERED: MELATONIN 5 MG TABLETS PO PRN (22:00)
--- NOTE | 2018-07-27 22:17 | PN ---
[facility] Progress Note Note: Patient reports recent negative PPD, but during past [facility] visit, PPD was documented as (+) and has had CXR's in past. No PPD will be given and patient will have a CXR on this admission.
[2018-07-27] MEDS: NICOTINE POLACRILEX 2 MG GUM BUC PRN (22:23)
[2018-07-28 00:04] LABS: URINE APPEARANCE CLEAR; URINE BILIRUBIN NEGATIVE (NEGATIVE); URINE COLOR YELLOW; URINE GLUCOSE (UA) NEGATIVE (NEGATIVE); URINE KETONE NEGATIVE (NEGATIVE); URINE LEUK ESTERASE NEGATIVE (NEGATIVE); URINE NITRITE NEGATIVE (NEGATIVE); URINE PROTEIN NEGATIVE (NEGATIVE); URINE UROBILINOGEN 0.2 mg/dL (0.2-1.0)
[2018-07-28] MEDS: NICOTINE POLACRILEX 2 MG GUM BUC PRN ×5 (06:26→21:16)
[2018-07-28] MEDS: hydrOXYzine PAMOATE 50 MG CAPSULE (FP) PO PRN ×4 (08:31→21:12)
[2018-07-28] MEDS: PRENATAL VITAMINS W/ FOLIC ACID TABLET (FP) PO SCH (09:49)
--- NOTE | 2018-07-28 10:36 | CONSULT ---
[facility] Psychiatric Consult - Data Date of interview: 07/28/18 Admission source: Referral from [facility]. Identifying data: Readmission to [facility] for this 32 y/o [place]-born male, discharged on 07/27/18 from [facility] and sent to [facility] for direct admission to [address] for rehabilitative care to consolidate sobriety and continue management of psychiatric co-morbidities (schizophrenia versus bipolar disorder). Patient is single, no children, homeless (resides at the [facility]), unemployed and supported on welfare. Substance Abuse History: Discussed with the patient in this interview. Mr Joyce admits to consuming an average of 10 beers (12 oz) on a daily basis since age 16. Presents with a history of multiple admissions to substance use treatment centers (detox + rehab). Prone to frequent relapses. See current [facility] report for additional details : Smoking history: Current every day smoker. Have you smoked in the past 12 months: Yes. Aproximately how many cigarettes per day: 20. Cigars Per Day: 0. Hx Chewing Tobacco Use: No. Initiated information on smoking cessation: Yes. 'Breaking Loose' booklet given: . - Substance & Tx. History. Hx Alcohol Use: Yes. Hx Substance Use: No. Substance Use Type: Alcohol. Hx Substance Use Treatment: Yes (Reports rehab 6 months ago but does not recall location of the rehab ). - Substances abused. * * Alcohol. Substance route: Oral. Frequency: Daily. Amount used: 10 BEERS. Age of first use: 16. Date of last use: 07/27/18 Medical History: History of withdrawal-related seizures. Psychiatric History: Onset of psychiatric disturbances : 2002. Reported as auditory hallucinations, delusions, mood dysregulation, suicidal ideation and massive deterioration of global functioning. Patient endorses a history of multiple psychiatric hospitalizations ([facility], [facility] , [facility], [facility] and many other facilities). Reportedly diagnosed with Schizophrenia (some records) and Bipolar Disorder ( according to others). Mr Joyce declares that he sees a psychiatrist at a mental health clinic located in the [facility] (his manager rn case escorts him to his appointments). According to the discharge documents from [facility], the patient was discharged on a regimen of seroquel 400 mg po bid + trazodone 300 mg/hs + remeron 30 mg/hs + gabapentin 400 mg po tid + haldol 2.5 mg/bid. " I have been on these doses for many years ". Patient indicates that he " came straight from " [facility] to [facility] (medications were last dispensed on 07/27/18 in the morning). Patient is already known to [facility], as evidenced by records from several clinicians. Noted history ( confirmed by the patient) of two suicide attempts (2018 : deliberate jump into traffic) and overdose with 20 tablets of 400 mg of seroquel in 2019(reason for his recent admission to [facility]). Physical/Sexual Abuse/Trauma History: Patient denies history of abuse. Stressors : separation from relatives, homelessness, lack of vocational skills, chronic unemployment, [place] (patient is worried about relatives living in [facility]), addictions, mental illness and chronic non-adherence to medications. Additional Comment: Drug screen is negative. Mental Status Exam - Mental Status Exam Alert and Oriented to: Time, Place, Person Cognitive Function: Good Patient Appearance: Well Groomed (unshaven but wearing neat hospital attire) Mood: Apprehensive (mildly apprehensive : patient is eager to receive his medications on time and with familiar doses) Affect: Appropriate, Mood Congruent, Normal Range Patient Behavior: Appropriate, Cooperative (well-mannered, friendly on approach) Speech Pattern: Clear, Appropriate Voice Loudness: Normal Thought Process: Goal Oriented Thought Disorder: Not Present Hallucinations: Denies Suicidal Ideation: Denies Homicidal Ideation: Denies Insight/Judgement: Fair Sleep: Poorly, Difficulty falling asleep (without his bedtime medications) Appetite: Good Muscle strength/Tone: Normal Gait/Station: Normal Psychiatric Findings - Problem List ([employer] 1, 2,3) (1) Schizophrenia Status: Chronic Comment: History. (2) Alcohol dependence Status: Chronic Qualifiers: Substance use status: unspecified alcohol-induced disorder Qualified Code(s ): F10.29 - Alcohol dependence with unspecified alcohol-induced disorder (3) Nicotine dependence Status: Chronic Qualifiers: Nicotine product type: cigarettes Substance use status: uncomplicated Qualified Code(s): F17.210 - Nicotine dependence, cigarettes, uncomplicated (4) Substance induced mood disorder Status: Chronic (5) Insomnia Status: Chronic - Initial Treatment Plan Initial Treatment Plan: Records are revisited ([facility]). Discharge papers from [facility] : reviewed. Medications verified and reconciled. Psychoeducation. Sleep hygiene. Support and reassurance provided to the patient. AA meetings. Groups. Motivational counseling. Relapse prevention (MAT) : information will be made available to the patient. Medications resumed as follows : seroquel 400 mg po bid + trazodone 300 mg po hs + gabapentin 400 mg po tid + haldol 2.5 mg po bid. Side effects/benefits of these drugs are discussed in this session. Patient is reminded of the risk of priapism, metabolic syndrome, orthostasis, cardiovascular adverse events, abnormal involuntary movements (dyskinesias, dystonias, akathisia), neuroleptic malignant syndrome and accidental falls. " I have been on these medications for a long time and they work well for me ". Consent (verbal) given to MD. Multidisciplinary team will maintain contact with patient's manager rn case in the community. Observation.
[2018-07-28 10:58] LABS: ALBUMIN 4.1 g/dl (3.4-5.0); ALK PHOS 87 U/L (45-117); ANION GAP 8 MMOL/L (8-16); BILIRUBIN,TOTAL 0.4 mg/dL (0.2-1); BLOOD UREA NITROGEN 12 mg/dL (7-18); CALCIUM 9.2 mg/dL (8.5-10.1); CHLORIDE 104 mmol/L (98-107); CO2 26 mmol/L (21-32); CREATININE 0.7 mg/dL (0.55-1.3); GLUCOSE,RANDOM 90 mg/dL (74-106); POTASSIUM 4.3 mmol/L (3.5-5.1); SGOT/AST 20 U/L (15-37); SGPT/ALT 42 U/L (13-61); SODIUM 137 mmol/L (136-145); TOT PROT 7.8 g/dl (6.4-8.2)
[2018-07-28] MEDS: QUEtiapine FUMARATE 400 MG TABLET PO SCH ×2 (11:09→21:12)
[2018-07-28] MEDS: GABAPENTIN 400 MG CAPSULE (FP) PO SCH ×2 (13:31→21:12)
[2018-07-28] MEDS: traZODone HCL 100 MG TABLET (FP) PO SCH (21:12)
[2018-07-28] MEDS: THIAMINE HCL 100 MG TABLET (FP) PO SCH (21:13)
[2018-07-28] MEDS ORDERED: PATIENT'S OWN MEDICATION (NON-FORMULARY) (Trazodone Hcl [Trazodone Hcl] 300 MG) PO SCH (22:00)
[2018-07-29] MEDS: NICOTINE POLACRILEX 2 MG GUM BUC PRN ×5 (06:21→21:24)
[2018-07-29] MEDS: GABAPENTIN 400 MG CAPSULE (FP) PO SCH ×3 (06:21→21:22)
[2018-07-29] MEDS: hydrOXYzine PAMOATE 50 MG CAPSULE (FP) PO PRN ×3 (06:22→18:01)
[2018-07-29] MEDS: QUEtiapine FUMARATE 400 MG TABLET PO SCH ×2 (09:56→21:23)
[2018-07-29] MEDS: PRENATAL VITAMINS W/ FOLIC ACID TABLET (FP) PO SCH (09:56)
[2018-07-29 10:30] LABS: HEMATOCRIT 39.8 % (35.4-49); MCH 27.6 pg (25.7-33.7); MCHC 32.6 g/dl (32.0-35.9); MEAN CELL VOLUME 84.9 fl (80-96); MEAN PLT VOLUME 7.9 fl (7.5-11.1); PLATELET COUNT 247 K/MM3 (134-434); RBC 4.69 M/mm3 (4.00-5.60); RDW 13.3 % (11.9-15.9); WHITE BLOOD COUNT 5.3 K/mm3 (4.0-10.0)
[2018-07-29] MEDS: traZODone HCL 100 MG TABLET (FP) PO SCH (21:23)
[2018-07-29] MEDS: THIAMINE HCL 100 MG TABLET (FP) PO SCH (21:24)
[2018-07-30] MEDS: GABAPENTIN 400 MG CAPSULE (FP) PO SCH (06:13)
[2018-07-30] MEDS: hydrOXYzine PAMOATE 50 MG CAPSULE (FP) PO PRN (06:14)
[2018-07-30] MEDS: NICOTINE POLACRILEX 2 MG GUM BUC PRN (06:14)
[2018-07-30 06:32] VITALS: BP 108/71; PULSE 83; TEMP 97.9
[2018-07-30] MEDS: QUEtiapine FUMARATE 400 MG TABLET PO SCH (10:22)
[2018-07-30] MEDS: PRENATAL VITAMINS W/ FOLIC ACID TABLET (FP) PO SCH (10:22)
--- NOTE | 2018-07-30 16:46 | PN ---
[facility] Progress Note Note: PT ADMITTED ON 07/27/18 AND STATES HE DOES NOT WANT TO CONTINUE REHAB. PT REPORTS HE HAS A PCP ERUM [id number](DOES NOT REMEMBER HIS DOCTOR'S LAST NAME) ON [address], [place] AND REPORTS HE HAS OWN HOME MEDICATIONS. PT WAS SEEN BY COUNSELOR, KATHLEEN JAIME WHO REFERRED PT TO [facility] FOR CD AFTERCARE FOLLOW UP. PT IS ALERT O X 3. DENIES S/H/I. Home Medications Medication Instructions Recorded Gabapentin 400 mg PO TID 07/27/18 Haloperidol [Haldol -] 2.5 mg PO BID 07/27/18 Mirtazapine [Remeron -] 30 mg PO DAILY 07/27/18 Quetiapine Fumarate [Seroquel -] 400 mg PO BID 07/27/18 Trazodone HCl 300 mg PO HS 07/27/18 Vital Signs - 24 hr 07/30/18 07/30/18 07/30/18 00:30 03:30 06:31 Temperature 97.9 F Pulse Rate 83 Respiratory 18 18 16 Rate Blood Pressure 108/71 Laboratory Tests 07/27/18 07/28/18 07/28/18 21:28 07:48 07:48 WBC Cancelled Corrected WBC (auto) Cancelled RBC Cancelled Hgb Cancelled Hct Cancelled MCV Cancelled MCH Cancelled MCHC Cancelled RDW Cancelled Plt Count Cancelled MPV Cancelled Manual Slide Review Cancelled Platelet Comment Cancelled Sodium 137 Potassium 4.3 Chloride 104 Carbon Dioxide 26 Anion Gap 8 BUN 12 Creatinine 0.7 Creat Clearance w eGFR 129.09 Random Glucose 90 Calcium 9.2 Total Bilirubin 0.4 AST 20 ALT 42 Alkaline Phosphatase 87 Total Protein 7.8 Albumin 4.1 Urine Color Yellow Urine Appearance Clear Urine pH 6.0 Ur Specific [place] 1.011 Urine Protein Negative Urine Glucose (UA) Negative Urine Ketones Negative Urine Blood Negative Urine Nitrite Negative Urine Bilirubin Negative Urine Urobilinogen 0.2 Ur Leukocyte Esterase Negative RPR Titer 07/28/18 07/29/18 07:48 07:40 WBC 5.3 Corrected WBC (auto) RBC 4.69 Hgb 13.0 Hct 39.8 MCV 84.9 MCH 27.6 MCHC 32.6 RDW 13.3 D Plt Count 247 MPV 7.9 Manual Slide Review Platelet Comment Sodium Potassium Chloride Carbon Dioxide Anion Gap BUN Creatinine Creat Clearance w eGFR Random Glucose Calcium Total Bilirubin AST ALT Alkaline Phosphatase Total Protein Albumin Urine Color Urine Appearance Urine pH Ur Specific [place] Urine Protein Urine Glucose (UA) Urine Ketones Urine Blood Urine Nitrite Urine Bilirubin Urine Urobilinogen Ur Leukocyte Esterase RPR Titer Nonreactive NAD PLAN;FOLLOW UP WITH AFTERCARE RECOMMENDATIONS FOLLOW UP WITH PCP ABOVE FOR MEDICAL MANAGEMENT WITHIN 1 - 2 WEEKS AFTER DISCHARGE.
== END 2018-07-30 11:10 | disposition left against medical advice (07) | DRG 770 ==
LOC: YASAS 13:38 → Y5N 17:58
PROVIDERS: ADMIT Neuromusculoskeletal Medicine & OMM; ATTEND Neuromusculoskeletal Medicine & OMM
PROC: HZ42ZZZ Group Counseling for Substance Abuse Treatment, Cognitive-Behavioral (ICD-10-PCS; principal; 2018-07-27)
DX: F10.20 Alcohol dependence, uncomplicated (principal); F17.210 Nicotine dependence, cigarettes, uncomplicated; F20.9 Schizophrenia, unspecified; F19.24 Other psychoactive substance dependence with psychoactive substance-induced mood disorder; F31.9 Bipolar disorder, unspecified; F41.8 Other specified anxiety disorders; F32.9 Major depressive disorder, single episode, unspecified; Z86.69 Personal history of other diseases of the nervous system and sense organs; G47.00 Insomnia, unspecified
CPT/HCPCS: 36415; 80053; 81003; 85027; 86593